=== PATIENT | female | born 1970 | race African-American/Black ===

== ENCOUNTER 2022-03-19 14:32 | Emergency (ER) | payer OTHER, SELFPAY ==
[~2022-03-19] VITALS: Ht 167.6 cm; Wt 72.7 kg
[~2022-03-19 14:32] MED LIST: ACET-2080 PO; VICOT PO
[2022-03-19] MEDS ORDERED: ALBU8HFA IH (14:41)
[2022-03-19] MEDS ORDERED: ALBUTEROL SULFATE 2.5 MG/0.5 ML NEB SOLUTION NEB ONE (18:45)
[2022-03-19] MEDS ORDERED: PredniSONE 20 MG TABLET PO ONE (18:45)
[2022-03-19] MEDS ORDERED: IPRATROPIUM BROMIDE 0.5 MG/2.5 ML NEB SOLUTION NEB ONE (18:45)
[2022-03-19 18:46] LABS: COVID AG,FIA SOURCE NASAL SWAB
[2022-03-19 19:08] LABS: INFLUENZA TYPE B NEGATIVE FOR TYPE B (NEGATIVE)
[2022-03-19 19:23] LABS: INFLUENZA TYPE A POSITIVE FOR TYPE A (NEGATIVE)
[2022-03-19] MEDS ORDERED: PRED-554 PO (21:45)
[2022-03-19] MEDS ORDERED: ALBU90AE IH (21:45)
[2022-03-19] MEDS ORDERED: AZIT250T9 PO (21:46)
[2022-03-19 22:36] VITALS: BP 149/89
== END 2022-03-19 22:38 | disposition home or self-care (01) ==
LOC: EMS 14:35
DX: J45.909 Unspecified asthma, uncomplicated (principal); J10.1 Influenza due to other identified influenza virus with other respiratory manifestations; Z20.822 Contact with and (suspected) exposure to COVID-19; I10 Essential (primary) hypertension; R50.9 Fever, unspecified; R52 Pain, unspecified; Z90.89 Acquired absence of other organs
CPT/HCPCS: 99284; 71046; 87426; 87804; 94640; J7512